=== PATIENT | female | born 1935 | race Caucasian/White ===

== ENCOUNTER 2016-12-26 21:01 | Emergency (ER) | payer MEDICARE ==
[2016-12-26] MEDS ORDERED: COLACE100 M1 PO (21:26)
[2016-12-26] MEDS ORDERED: LASIX20 M1 PO (21:27)
[2016-12-26 21:51] LABS: BASO % 0.2 % (0-2); EOS % 1.1 % (0-7); EOSINOPHIL ABSOLUTE COUNT 0.1 tho/cmm (0.0-0.7); HCT-HEMATOCRIT 38.2 % (34.0-49.0); HGB-HEMOGLOBIN 12.6 gm/dl (12.0-15.5); IMMATURE GRANULOCYTES ABSOLUTE 0.02 tho/cmm (0-0.03); IMMATURE GRANULOCYTES PERCENT 0.3 % (0-0.3); LYMPH ABSOLUTE COUNT 1.7 tho/cmm (0.8-4.5); MCH (MEAN CORPUSCULAR HGB) 36.1 pg (28.0-32.0); MCV (MEAN CELL VOLUME) 109.5 fl (82.0-96.0); MEAN PLATELET VOLUME 9.7 cmc (9.4-12.4); MONO % 12.1 % (0-12); MONOCYTE ABSOLUTE COUNT 0.8 tho/cmm (0.0-1.2); NEUTROPHIL ABSOLUTE COUNT 3.7 tho/cmm (1.6-8.0); NEUTROPHIL-AUTOMATED 3.7 tho/cmm (1.6-8.0); NEUTROPHILS % 59.3 % (40-80); PLATELET COUNT 226 tho/cmm (150-450); RED BLOOD COUNT 3.49 mil/cmm (4.00-5.20); RED CELL DISTRIBUTION WIDTH 14.4 % (12.4-16.4); WHITE BLOOD COUNT 6.2 tho/cmm (4.0-10.0)
[2016-12-26 21:55] LABS: URINE APPEARANCE CLEAR; URINE BILIRUBIN SMALL (NEG); URINE BLOOD NEGATIVE (NEG); URINE COLOR YELLOW; URINE GLUCOSE (UA) NEGATIVE (NEG); URINE KETONE NEGATIVE (NEG); URINE LEUKOCYTE ESTERASE POSITIVE (NEG); URINE NITRITE NEGATIVE (NEG); URINE PH 6.5 (5.0-8.0); URINE PROTEIN SMALL (NEG); URINE SPECIFIC GRAVITY 1.015 (1.003-1.030)
[2016-12-26 21:56] LABS: INR 2.1 INR (0.9-1.1); PROTHROMBIN TIME 24.4 SECONDS (9.0-13.6)
[2016-12-26 22:01] LABS: URINE RBC 0 /[HPF] (0-5)
[2016-12-26] MEDS ORDERED: NEURONTIN100 M1 PO (22:01)
[2016-12-26] MEDS ORDERED: PRINIVIL5 M1 PO (22:01)
[2016-12-26] MEDS ORDERED: CYMBALTA30 M1 PO (22:02)
[2016-12-26] MEDS ORDERED: ATORVASTATIN CA20 M1 PO (22:03)
[2016-12-26] MEDS ORDERED: COUMADIN2 M1 PO (22:03)
[2016-12-26] MEDS ORDERED: POLY-IRON150 M1 PO (22:04)
[2016-12-26 22:09] LABS: ALB/GLOB RATIO 0.6 (0.8-2.0); ALBUMIN 2.8 g/dl (3.5-5.0); ALKALINE PHOSPHATASE 100 U/L (33-138); ALT/SGPT 14 U/L (12-78); ANION GAP 12 mmol/L (0-20); AST/SGOT 25 U/L (10-40); BILIRUBIN,TOTAL 0.4 mg/dl (0-1.5); BLOOD UREA NITROGEN 25 mg/dl (6-24); CALCIUM 9.2 mg/dl (8.5-10.5); CARBON DIOXIDE-VENOUS 34 mmol/L (22-32); CHLORIDE 102 mmol/l (96-110); CREATININE 1.06 mg/dl (0.50-1.10); GLUCOSE 104 mg/dL (70-110); SODIUM 144 mmol/L (135-145); eGFR VALUE FOR BLACK 57 mL/Min
== END 2016-12-26 23:38 ==
LOC: EDMED 21:01
PROVIDERS: Emergency Medicine Emergency Medical Services
DX: R53.1 Weakness (principal); R53.81 Other malaise; I10 Essential (primary) hypertension; F17.200 Nicotine dependence, unspecified, uncomplicated; Z95.2 Presence of prosthetic heart valve; Z79.01 Long term (current) use of anticoagulants; Z79.899 Other long term (current) drug therapy
CPT/HCPCS: J7030